=== PATIENT | female | born 1980 ===

== ENCOUNTER 2021-07-22 11:44 | Outpatient (CLI) | payer OTHER ==
[~2021-07-22 11:44] MED LIST: AMBIEN10 MG; CLONAZEPAM1 M1; DESYREL; DETROL LA4 MG; HYFIBER WI12 GM/302; MYLANTA COAT-C355 ML; SERTRALINE PO
== END 2021-07-22 11:45 | disposition home or self-care (01) ==
LOC: LAB 11:44
PROVIDERS: ATTEND Surgery
DX: K64.2 Third degree hemorrhoids (principal); K62.5 Hemorrhage of anus and rectum; K59.09 Other constipation; K62.89 Other specified diseases of anus and rectum; R14.0 Abdominal distension (gaseous)

== ENCOUNTER 2021-07-24 06:16 | Day surgery (SDC) | payer OTHER ==
[2021-07-24] MEDS ORDERED: PERCOCET 5-3251 EACH PO (10:43)
[2021-07-24] MEDS ORDERED: ULTRAM50 MG PO (12:47)
== END 2021-07-24 17:00 | disposition home or self-care (01) ==
LOC: CIR.AMB 06:16
PROVIDERS: ATTEND Surgery
DX: K64.8 Other hemorrhoids (principal); K64.4 Residual hemorrhoidal skin tags; Z20.822 Contact with and (suspected) exposure to COVID-19